=== PATIENT | female | born 1955 | race Caucasian/White ===

== ENCOUNTER 2018-12-02 08:15 | Inpatient (IN) | payer MEDICARE ==
[2018-12-02] VITALS (7 sets, daily range): BP systolic 99–109; BP diastolic 51–61
[~2018-12-02] VITALS: Ht 152.4 cm; Wt 68.9 kg
[~2018-12-02 08:15] MED LIST: ASPI-630 PO; DILT360C PO; ERGO500027 PO; FAMO40TA57 PO; HYDROcodone/APAP 7.5/325MG 1 TAB TABLET PO PRN; IV RINGERS,LACTATED 1000ML 1,000 ML IV SCH; LIDOCAINE 1% PF 2 ML VIAL. ID PRN; METO-239 PO; MORPHINE SULFATE 5 MG, KETOROLAC 30MG VIAL 30 MG, ROPIVacaine 0.5% PF 60 ML, EPINEPHrin... INT ART ONE; MYCO360T PO; ONDANSETRON PF 4 MG/2 ML VIAL. IV PRN; PROCHLORPERAZINE 10 MG/2 ML VIAL. IV PRN; TACR1CAP4 PO; VANCOMYCIN 1GM IVPB FOR OMNI 250 ML IV PRN; fentaNYL PF VIAL 100 MCG/2 ML VIAL IV PRN
[2018-12-02] MEDS ORDERED: VANCOMYCIN 1GM IVPB FOR OMNI. ONE (09:00)
[2018-12-02] MEDS ORDERED: SCOPOLAMINE 1.5MG PATCH. TD ONE ×2 (09:09→09:30)
[2018-12-02] MEDS: IV NORMAL SALINE 1000ML BAG 1,000 ML IV SCH ×3 (09:14→15:19)
[2018-12-02] MEDS ORDERED: MIDAZOLAM HCL/PF 2 MG/2 ML VIAL. ONE (09:36)
[2018-12-02] MEDS ORDERED: FAMOTIDINE 20 MG/2 ML VIAL ONE (09:36)
[2018-12-02] MEDS ORDERED: DEXAMETHASONE SOD PHOS 4 MG/ML VIAL ONE (09:36)
[2018-12-02] MEDS ORDERED: LIDOCAINE 2% PF 5 ML VIAL. ONE (09:36)
[2018-12-02] MEDS ORDERED: fentaNYL PF VIAL 100 MCG/2 ML VIAL ONE (09:36)
[2018-12-02] MEDS ORDERED: PROPOFOL 20 ML IV ONE (09:36)
[2018-12-02] MEDS ORDERED: ONDANSETRON PF 4 MG/2 ML VIAL. ONE (09:36)
[2018-12-02] MEDS ORDERED: ROCURONIUM 50 MG/5 ML VIAL. ONE (09:36)
[2018-12-02] MEDS: DAPTOmycin (GENERIC) IVPB 400 MG in IV NORMAL SALINE 50ML 50 ML IV SCH (10:00)
[2018-12-02] MEDS ORDERED: KETAMINE HCL IN NACL, ISO-OSM 50 MG/5 ML SYRINGE ONE (10:39)
[2018-12-02] MEDS ORDERED: ePHEDrine PF IN SALINE 50 MG/10 ML SYRINGE. IV ONE (10:53)
[2018-12-02] MEDS ORDERED: DESFLURANE > 120 MINUTES IH ONE (12:18)
[2018-12-02] MEDS ORDERED: NEOSTIGMINE METHYLSULFATE 5 MG/5 ML SYRINGE. ONE (12:19)
[2018-12-02] MEDS ORDERED: GLYCOPYRROLATE 1 MG/5 ML VIAL. ONE (12:19)
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
[2018-12-02] MEDS ORDERED: IV DEXTROSE 5% 250 ML BAG. IV PRN (12:45)
[2018-12-02] MEDS ORDERED: PROCHLORPERAZINE 5 MG TABLET. PO PRN (12:45)
[2018-12-02] MEDS ORDERED: ZOLPIDEM 5 MG TABLET. PO PRN (12:45)
[2018-12-02] MEDS ORDERED: MORPHINE SULFATE 2 MG/ML VIAL. IV PRN (12:45)
[2018-12-02] MEDS ORDERED: diphenhydrAMINE 50 MG/ML VIAL IV PRN (12:45)
[2018-12-02] MEDS ORDERED: 0.9 % SODIUM CHLORIDE 10 ML DISP.SYRIN. IV PRN (12:45)
[2018-12-02] MEDS ORDERED: DEXTROSE 50% 25 GM / 50ML DISP.SYRIN. IV PRN (12:45)
[2018-12-02] MEDS: fentaNYL PF VIAL 100 MCG/2 ML VIAL IV PRN ×6 (13:14→19:37)
[2018-12-02] MEDS: MORPHINE SULFATE 2 MG/ML VIAL. IV PRN ×2 (13:28→13:40)
--- NOTE | 2018-12-02 13:35 | RAD ---
Examination: KNEE RIGHT 2V History: Postoperative right knee joint arthroplasty Comparison/Correlation: 09/29/2018 right knee x-ray exam Findings: Frontal and lateral views of the right knee were obtained. Total right knee joint arthroplasty is evident with no loosening. Drainage catheter tubing overlying the knee joint capsule is evident. Soft tissue gas and gas within the knee joint capsule consistent with postoperative status is identified. No retained foreign body suspected. No fracture. Impression: Total right knee joint arthroplasty. Electronically signed by: Dayron Shaw MD (12/02/2018 1:32 PM) [facility]
[2018-12-02] MEDS ORDERED: HYDROmorphone 2 MG/ML VIAL ONE (13:54)
[2018-12-02] MEDS: HYDROmorphone 2 MG/ML VIAL IV PRN ×2 (13:59→14:10)
--- NOTE | 2018-12-02 15:33 | NUR ---
Anthony came to the floor with pain rating 8-9; medicated with fentanyl iv. she has good bilateral pulses,sensation and motion. o2 placed at 4l/nc; sating 94%. medications sent to pharmacy for verification; she is to take her own medications
--- NOTE | 2018-12-02 16:15 | PDOC ---
Infectious Disease Note Vital Sign Vital Signs Vital Signs Date Time Temp Pulse Resp B/P (MAP) Pulse Ox O2 Delivery O2 Flow Rate FiO2 12/02/18 15:41 Nasal Cannula 4.0 12/02/18 15:15 97.5 50 14 99/53 (68) 93 97.5 Objective Assessment Positive MRSA nares from 11/10/2018 s/p Bactroban > 5 days and daily chlorhexidine body washes > 5 days Immunosuppression secondary kidney transplant 2003 Right knee OA s/p TKA, 12/02 performed CKD. last Cr 1.2 Crohn disease Plan Plan of Care Dapto x 2 doses for R TKA surgical prophylaxis- avoiding Vanc with CKD and renal transplant f/u am labs Supportive care Thank you Notes from 11/03 and labs from 11/10 reviewed D/w nursing this am Attending Co-Sign Attending Co-Sign The patient was seen and interviewed as well as examined at the bedside. The chart was reviewed. The case was discussed. Agree with the plan of care. HENRY OSBORNE APRN Dec 02, 2018 16:15 SARMAD NELSON MD Dec 02, 2018 16:18
[2018-12-02] MEDS: FERROUS SULFATE 325 MG TABLET. PO SCH (16:58)
[2018-12-02] MEDS: oxyCODONE IR 5 MG TABLET PO PRN ×2 (16:58→23:17)
[2018-12-02] MEDS: ONDANSETRON ODT 4 MG TAB.RAPDIS. PO SCH (16:58)
[2018-12-02] MEDS: KETOROLAC 30MG VIAL 30 MG, BUPIVACAINE MPF 0.25% 20 ML, EPINEPHrine 0.5 MG in TOTAL VOL... INT ART SCH (16:59)
[2018-12-02] MEDS ORDERED: NIFEdipine 10 MG CAPSULE PO PRN (17:15)
[2018-12-02] MEDS: ONDANSETRON PF 4 MG/2 ML VIAL. IV SCH (17:39)
[2018-12-02] MEDS: MYCOPHENOLIC ACID 360 MG PO SCH (20:45)
[2018-12-02] MEDS: TACROLIMUS 1 MG PO SCH (20:45)
[2018-12-02] MEDS: FAMOTIDINE 40 MG PO SCH (20:45)
[2018-12-02] MEDS: APIXABAN 2.5 MG TABLET. PO SCH (20:46)
--- NOTE | 2018-12-02 23:00 | NUR ---
Unable to void. Bladder scan shows 525cc. Refused straight cath, "I'll try again." Encouraged po fluids, IVF patent.
[2018-12-03] MEDS: IV NORMAL SALINE 1000ML BAG 1,000 ML IV SCH ×3 (01:15→19:35)
[2018-12-03 02:35] VITALS: BP 109/61
[2018-12-03] MEDS: GABAPENTIN 100 MG CAPSULE. PO SCH ×2 (05:55→17:06)
[2018-12-03] MEDS: ONDANSETRON ODT 4 MG TAB.RAPDIS. PO SCH ×3 (05:56→12:00)
[2018-12-03] MEDS: traMADol 50 MG TABLET PO SCH ×3 (05:56→17:04)
[2018-12-03] MEDS: KETOROLAC 30MG VIAL 30 MG, BUPIVACAINE MPF 0.25% 20 ML, EPINEPHrine 0.5 MG in TOTAL VOL... INT ART SCH (05:58)
[2018-12-03] MEDS ORDERED: MAGNESIUM HYDROXIDE 2,400 MG/30 ML ORAL.SUSP. PO PRN (06:00)
[2018-12-03] MEDS: ONDANSETRON PF 4 MG/2 ML VIAL. IV SCH ×3 (06:00→12:00)
[2018-12-03 06:12] VITALS: BP 136/72
--- NOTE | 2018-12-03 06:25 | NUR ---
Voided 250cc concentrated urine. IAC infusing w/o difficulty.
[2018-12-03 08:30] LABS: HEMATOCRIT 34.3 % (36.0-47.0); HEMOGLOBIN 11.2 g/dL (12.0-15.5); RED BLOOD COUNT 3.92 x10^6/uL (3.50-5.40); RED CELL DISTRIBUTION WIDTH 13.4 % (11.5-14.5); WHITE BLOOD COUNT 18.4 x10^3/uL (4.0-11.0)
[2018-12-03] MEDS: FERROUS SULFATE 325 MG TABLET. PO SCH ×2 (08:32→17:04)
[2018-12-03] MEDS: APIXABAN 2.5 MG TABLET. PO SCH ×2 (08:32→20:29)
[2018-12-03] MEDS: MULTIVITAMIN with MINERAL TABLET. PO SCH (08:33)
[2018-12-03] MEDS: ACETAMINOPHEN 500 MG TABLET PO SCH ×3 (08:33→20:30)
[2018-12-03] MEDS: SENNOSIDES/DOCUSATE 8.6/50MG TABLET. PO SCH (08:33)
[2018-12-03] MEDS: TACROLIMUS 1 MG PO SCH ×2 (08:39→20:29)
[2018-12-03] MEDS: ASPIRIN 81 MG PO SCH (08:45)
[2018-12-03] MEDS: MYCOPHENOLIC ACID 360 MG PO SCH ×2 (08:45→20:29)
[2018-12-03] MEDS: oxyCODONE IR 5 MG TABLET PO PRN ×3 (08:49→20:33)
[2018-12-03 09:00] VITALS: BP 115/64
[2018-12-03] MEDS: METOPROLOL 50 MG PO SCH (09:00)
[2018-12-03] MEDS: DILTIAZEM 360 MG PO SCH (09:00)
[2018-12-03] MEDS ORDERED: ASPIRIN CHEWABLE 81 MG TABLET. PO SCH (09:00)
[2018-12-03] MEDS: DAPTOmycin (GENERIC) IVPB 400 MG in IV NORMAL SALINE 50ML 50 ML IV SCH (09:47)
--- NOTE | 2018-12-03 10:17 | PDOC4 ---
Operative Note Operative Note Date of surgery: 12/03/2018 Preoperative diagnosis: Degenerative joint disease right knee Postoperative diagnosis: Same Operative procedure: Right total knee arthroplasty Surgeon: Judith Assist: Colin Salcido Anesthesia: Gen. Estimated blood loss: 75 mL Complications: None Specimens: Cartilage surfaces to pathology Drains: Intra-articular catheter and Hemovac Operative indications: Please see my detailed history and physical preoperativel y for detailed operative indications and note that we discussed previously nonoperative options which she had exhausted as she is been recently unresponsive to corticosteroid or Visco supplementation injections and has had significant pain and limitations of her activities of daily living despite activity modification. We had gone over risks benefits postoperative course of total knee arthroplasty including the possibility of infection nerve or blood vessel damage continued pain premature wear or loosening medical or other anesthetic complications among others and specifically her increased risks of immunosuppressive medications in terms of infection and other medical issues all her questions were answered she wishes to proceed with surgical evaluation and t reatment having given informed consent. Operative text: Patient was identified procedure verified patient placed in the supine position on the operating table. After adequate amounts of general endotracheal anesthesia were administered the right lower extremity was prepped and draped in standard sterile fashion with a thigh tourniquet. After timeout was performed patient procedure identified and verified, the right lower extremity was exsanguinated by Esmarch bandage tourniquet inflated to 350 mmHg and a midline incision was made medial parapatellar approach carried out patella everted fat pad excised distal femur was drilled and an extra 2 mm distal cut was made based on appearance. A size 4 cutting guide was indicated by the alignment and measuring device which was drilled in 3� of external rotation with reference to the posterior condyles, distal anterior posterior and chamfer cuts were then made with the femoral jig tibial cut was made and the posterior cruciate ligament initially spared. Additional lateral cut was made to achieve ligament balance and a size 3 tibial baseplate trial was found to have excellent fit and was noted to have excessive laxity of the posterior cruciate ligament when trial fit with the size 4 cruciate retaining femur. Therefore I converted to a cruciate stabilized implant by making box reaming and trial fitting showed excellent ligament balance full range of motion with the cruciate stabilized trial. Patella was then resurfaced with a resurfacing patella 29 mm which was medialized lateral bone was chamfered to avoid any possible impingement. Tibia was drilled and broached trial components were removed thorough irrigation carried out normal saline solution bleeding points controlled by electrocautery and the following components were cemented with polymethyl methacrylate cement a size 3 journey nonporous tibial baseplate a size 4 right bicruciate stabilized j ourney to Oxinium femoral component and a 29 mm resurfacing round patellar component. Knee was held in extension with 11 mm spacer excess cement was removed after cement was dry and the stability and balance again confirmed an 11 mm journey 2 articular insert was snapped into place thorough irrigation again carried out normal saline solution pain catheter and Hemovac drain were placed retinaculum was closed with #2 Ethibond interrupted suture and reinforced with #1 PDS strata fix suture subcutaneous closure with buried Vicryl subcuticular 3- 0 Monocryl strata fix. A piotr dressing with Acticoat was placed. Toes were noted be warm and pink following deflation of the tourniquet which occurred following component cementing patient was returned recovery room in stable condition having tolerated procedure well BRITTNEY LEO MD Dec 03, 2018 10:17
--- NOTE | 2018-12-03 10:20 | PDOC ---
PROGRESS NOTES Subjective Subjective Problems overnight: Overall doing well pain is controlled she has no other complaints aside from expected knee soreness and some swelling in the lower part of her leg around the ankle Objective Vital Signs Vital Signs Date Time Temp Pulse Resp B/P (MAP) Pulse Ox O2 Delivery O2 Flow Rate FiO2 12/03/18 08:49 Room Air 12/03/18 06:58 20 12/03/18 06:12 98.1 67 136/72 (93) 94 98.1 12/02/18 19:37 4.0 Physical Exam Dressings clean dry intact her Hemovac drain and pain catheter are likewise intact she does have some swelling around the ankle no calf tenderness distal neurovascular status intact and she has reasonable early range of motion Labs Laboratory Tests Test 12/03/18 07:55 White Blood Count 18.4 x10^3/uL (4.0-11.0) Red Blood Count 3.92 x10^6/uL (3.50-5.40) Hemoglobin 11.2 g/dL (12.0-15.5) Hematocrit 34.3 % (36.0-47.0) Mean Corpuscular Volume 88 fL (79-100) Mean Corpuscular Hemoglobin 29 pg (25-35) Mean Corpuscular Hemoglobin Concent 33 g/dL (31-37) Red Cell Distribution Width 13.4 % (11.5-14.5) Platelet Count 213 x10^3/uL (140-400) Laboratory Tests Test 12/03/18 07:55 White Blood Count 18.4 x10^3/uL (4.0-11.0) Red Blood Count 3.92 x10^6/uL (3.50-5.40) Hemoglobin 11.2 g/dL (12.0-15.5) Hematocrit 34.3 % (36.0-47.0) Mean Corpuscular Volume 88 fL (79-100) Mean Corpuscular Hemoglobin 29 pg (25-35) Mean Corpuscular Hemoglobin Concent 33 g/dL (31-37) Red Cell Distribution Width 13.4 % (11.5-14.5) Platelet Count 213 x10^3/uL (140-400) Imaging Postoperative x-rays show excellent alignment of a right total knee arthroplasty Assessment Assessment POD# [1], S/P [right total knee arthroplasty] Plan Plan of Care Overall she is doing well currently, home medicines are reconciled and available Appreciate infectious disease input due to her kidney transplant and initial reoperative MRSA results on swab, continue daptomycin prophylactically �2 more doses Mobilize with physical therapy standard total knee protocol BRITTNEY LEO MD Dec 03, 2018 10:20
[2018-12-03 11:30] VITALS: BP 117/62
[2018-12-03] MEDS ORDERED: ONDANSETRON ODT 4 MG TAB.RAPDIS. PO PRN (12:00)
[2018-12-03] MEDS ORDERED: ONDANSETRON PF 4 MG/2 ML VIAL. IV PRN (12:00)
[2018-12-03] MEDS: CALCIUM CARBONATE 500 MG TAB.CHEW PO PRN ×2 (12:37→20:33)
--- NOTE | 2018-12-03 15:31 | PDOC ---
Infectious Disease Note Subjective Subjective Doing alright Had PT twice today Transferred to the chair Pain controlled No BM Denies F/C/N/V/SOA/aches No generalized aches Vital Sign Vital Signs Vital Signs Date Time Temp Pulse Resp B/P (MAP) Pulse Ox O2 Delivery O2 Flow Rate FiO2 12/03/18 13:34 Room Air 12/03/18 11:30 62 117/62 (80) 12/03/18 06:58 20 12/03/18 06:12 98.1 94 98.1 12/02/18 19:37 4.0 Physical Exam PHYSICAL EXAM GENERAL: Sitting in the chair, alert, relaxed HENT: Oropharynx pink, moist LUNGS: Clear HEART: S1 and S2 ABD: Soft and nontender EXT: Trace edema RLE, no cyanosis. DP palpable. Right knee post-op dressing and w/ piotr and Hemovac drain in place SKIN: Warm to touch. No sighn of rash DIAMOND SORTER: Alert and oriented PIV ok Labs Lab Laboratory Tests Test 12/03/18 07:55 White Blood Count 18.4 x10^3/uL (4.0-11.0) Red Blood Count 3.92 x10^6/uL (3.50-5.40) Hemoglobin 11.2 g/dL (12.0-15.5) Hematocrit 34.3 % (36.0-47.0) Mean Corpuscular Volume 88 fL (79-100) Mean Corpuscular Hemoglobin 29 pg (25-35) Mean Corpuscular Hemoglobin Concent 33 g/dL (31-37) Red Cell Distribution Width 13.4 % (11.5-14.5) Platelet Count 213 x10^3/uL (140-400) Objective Assessment Positive MRSA nares from 11/10/2018 s/p Bactroban and daily chlorhexidine body washes both > 5 days Immunosuppression secondary kidney transplant 2003 Right knee OA s/p TKA, 12/[address] Wong - clinically looks very well CKD. last Cr 1.2 Crohn disease Leukocytosis, likely reactive steroids and surgery Plan Plan of Care Completed 2 doses of dapto for right TKA surgical prophylaxis. 2 more doses were ordered per ortho Vanc was avoided with CKD and renal transplant Dexamethasone, 12/02 Supportive care D/w nursing BMP in am Attending Co-Sign Attending Co-Sign The patient was seen and interviewed as well as examined at the bedside. The chart was reviewed. The case was discussed. Agree with the plan of care. HENRY OSBORNE APRN Dec 03, 2018 15:31 SARMAD NELSON MD Dec 03, 2018 16:27
[2018-12-03] MEDS ORDERED: BISACODYL 10 MG SUPP.RECT. PR PRN (16:00)
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
[2018-12-03 17:54] VITALS: BP 120/73
[2018-12-03] MEDS: FAMOTIDINE 40 MG PO SCH (20:28)
[2018-12-04] MEDS: traMADol 50 MG TABLET PO SCH ×4 (00:02→17:49)
[2018-12-04] MEDS: oxyCODONE IR 5 MG TABLET PO PRN ×5 (00:04→16:51)
[2018-12-04] MEDS: ACETAMINOPHEN 500 MG TABLET PO SCH ×4 (03:00→21:34)
[2018-12-04 05:30] VITALS: BP 132/73
[2018-12-04] MEDS: GABAPENTIN 100 MG CAPSULE. PO SCH ×2 (06:21→17:49)
[2018-12-04 06:38] LABS: HEMATOCRIT 29.5 % (36.0-47.0); HEMOGLOBIN 9.9 g/dL (12.0-15.5)
[2018-12-04 06:54] LABS: CALCIUM 8.9 mg/dL (8.5-10.1); CREATININE 1.3 mg/dL (0.6-1.0); GFR 41.6; POTASSIUM 4.8 mmol/L (3.5-5.1)
[2018-12-04] MEDS: ASPIRIN 81 MG PO SCH (07:52)
[2018-12-04] MEDS: FERROUS SULFATE 325 MG TABLET. PO SCH ×2 (07:52→16:52)
[2018-12-04] MEDS: fentaNYL PF VIAL 100 MCG/2 ML VIAL IV PRN (07:56)
[2018-12-04 09:00] VITALS: BP 120/57
[2018-12-04] MEDS: DAPTOmycin (GENERIC) IVPB 400 MG in IV NORMAL SALINE 50ML 50 ML IV SCH (09:25)
[2018-12-04] MEDS: METOPROLOL 50 MG PO SCH (09:26)
[2018-12-04] MEDS: MYCOPHENOLIC ACID 360 MG PO SCH ×2 (09:27→21:34)
[2018-12-04] MEDS: FAMOTIDINE 40 MG PO SCH (09:28)
[2018-12-04] MEDS: DILTIAZEM 360 MG PO SCH (09:28)
[2018-12-04] MEDS: TACROLIMUS 1 MG PO SCH ×2 (09:29→21:34)
[2018-12-04] MEDS: MULTIVITAMIN with MINERAL TABLET. PO SCH (09:29)
[2018-12-04] MEDS: APIXABAN 2.5 MG TABLET. PO SCH ×2 (09:30→21:34)
[2018-12-04] MEDS: SENNOSIDES/DOCUSATE 8.6/50MG TABLET. PO SCH (09:30)
--- NOTE | 2018-12-04 10:30 | NUR ---
resting quietly in bed. states that she is having pain in her thigh area and is rating it around a "7" medicated with fentanyl iv. she has good sensation/motion frankie lower extremities
[2018-12-04] MEDS ORDERED: POLYETHYLENE GLYCOL 3350 17 GM PACKET. PO PRN (12:00)
--- NOTE | 2018-12-04 13:02 | PDOC ---
PROGRESS NOTES Subjective Subjective Problems overnight: A bit more sore today as expected, she says she probably isn't keeping up as well as she showed on pain medications but overall getting up and around reasonably well Objective Vital Signs Vital Signs Date Time Temp Pulse Resp B/P (MAP) Pulse Ox O2 Delivery O2 Flow Rate FiO2 12/04/18 12:57 93 Room Air 4.0 12/04/18 10:14 20 12/04/18 05:30 97.6 73 132/73 (92) 97.6 Physical Exam Emma dressing clean dry intact good early range of motion distal neurovascular status intact good tracking and stability Labs Laboratory Tests Test 12/03/18 07:55 12/04/18 06:10 White Blood Count 18.4 x10^3/uL (4.0-11.0) Red Blood Count 3.92 x10^6/uL (3.50-5.40) Hemoglobin 11.2 g/dL (12.0-15.5) 9.9 g/dL (12.0-15.5) Hematocrit 34.3 % (36.0-47.0) 29.5 % (36.0-47.0) Mean Corpuscular Volume 88 fL (79-100) Mean Corpuscular Hemoglobin 29 pg (25-35) Mean Corpuscular Hemoglobin Concent 33 g/dL (31-37) 34 g/dL (31-37) Red Cell Distribution Width 13.4 % (11.5-14.5) Platelet Count 213 x10^3/uL (140-400) Sodium Level 141 mmol/L (136-145) Potassium Level 4.8 mmol/L (3.5-5.1) Chloride Level 107 mmol/L (98-107) Carbon Dioxide Level 27 mmol/L (21-32) Anion Gap 7 (6-14) Blood Urea Nitrogen 33 mg/dL (7-20) Creatinine 1.3 mg/dL (0.6-1.0) Estimated GFR (Cockcroft-Gault) 41.6 Glucose Level 88 mg/dL (70-99) Calcium Level 8.9 mg/dL (8.5-10.1) Laboratory Tests Test 12/04/18 06:10 Hemoglobin 9.9 g/dL (12.0-15.5) Hematocrit 29.5 % (36.0-47.0) Mean Corpuscular Hemoglobin Concent 34 g/dL (31-37) Sodium Level 141 mmol/L (136-145) Potassium Level 4.8 mmol/L (3.5-5.1) Chloride Level 107 mmol/L (98-107) Carbon Dioxide Level 27 mmol/L (21-32) Anion Gap 7 (6-14) Blood Urea Nitrogen 33 mg/dL (7-20) Creatinine 1.3 mg/dL (0.6-1.0) Estimated GFR (Cockcroft-Gault) 41.6 Glucose Level 88 mg/dL (70-99) Calcium Level 8.9 mg/dL (8.5-10.1) Assessment Assessment POD# [2], S/P [right total knee arthroplasty] Plan Plan of Care Continue Eliquis for DVT prophylaxis, estimated duration 4 weeks postop Appreciate infectious disease follow Continue physical therapy weightbearing as tolerated standard total knee protocol Anticipate likely outpatient physical therapy on discharge BRITTNEY LEO MD Dec 04, 2018 13:02
[2018-12-04] MEDS ORDERED: ANTI-COAG MONITOR BY PHARMACY. MC PRN (14:45)
--- NOTE | 2018-12-04 15:46 | PDOC ---
Infectious Disease Note Subjective Subjective Drain removed earlier Physical therapy going well Pain controlled, less swelling No F/C/N/V ROS ROS per HPI Vital Sign Vital Signs Vital Signs Date Time Temp Pulse Resp B/P (MAP) Pulse Ox O2 Delivery O2 Flow Rate FiO2 12/04/18 12:57 93 Room Air 4.0 12/04/18 10:14 20 12/04/18 05:30 97.6 73 132/73 (92) 97.6 Physical Exam PHYSICAL EXAM GENERAL: Sitting in the chair, alert, relaxed, tired appearance HENT: Oropharynx pink, moist LUNGS: Clear HEART: S1 and S2 ABD: Soft and nontender EXT: Trace edema RLE, no cyanosis. DP palpable. Right knee piotr in place. DP palpable SKIN: Warm to touch. No sign of rash MEDICAL ASSISTING PROGRAM DIRECTOR: Alert and oriented x 3 PIV ok Labs Lab Laboratory Tests Test 12/04/18 06:10 Hemoglobin 9.9 g/dL (12.0-15.5) Hematocrit 29.5 % (36.0-47.0) Mean Corpuscular Hemoglobin Concent 34 g/dL (31-37) Sodium Level 141 mmol/L (136-145) Potassium Level 4.8 mmol/L (3.5-5.1) Chloride Level 107 mmol/L (98-107) Carbon Dioxide Level 27 mmol/L (21-32) Anion Gap 7 (6-14) Blood Urea Nitrogen 33 mg/dL (7-20) Creatinine 1.3 mg/dL (0.6-1.0) Estimated GFR (Cockcroft-Gault) 41.6 Glucose Level 88 mg/dL (70-99) Calcium Level 8.9 mg/dL (8.5-10.1) Objective Assessment Positive MRSA nares from 11/10/2018 s/p Bactroban and daily chlorhexidine body washes both > 5 days Immunosuppression secondary kidney transplant 2003 Right knee OA s/p TKA, 12/[address] Wong - clinically looks very well CKD. last Cr 1.2 Crohn disease Leukocytosis, likely reactive steroids and surgery Plan Plan of Care Completed 2 doses of dapto for right TKA surgical prophylaxis. 2 more doses were ordered per ortho. Last dose on 12/05 Vanc was avoided with CKD and renal transplant Cr. 1.3 Anticipating discharge home soon Will dose peridex for tongue bacterial overgrowth - ID to sign off Attending Co-Sign Attending Co-Sign The patient was seen and interviewed as well as examined at the bedside. The chart was reviewed. The case was discussed. Agree with the plan of care. HENRY OSBORNE APRN Dec 04, 2018 15:46 SARMAD NELSON MD Dec 04, 2018 16:29
[2018-12-04 17:47] VITALS: BP 85/53
[2018-12-04] MEDS: CHLORHEXIDINE 0.12% 15 ML MOUTHWASH. SWSP SCH (21:33)
[2018-12-05] MEDS: traMADol 50 MG TABLET PO SCH ×3 (00:32→12:07)
[2018-12-05] MEDS: ACETAMINOPHEN 500 MG TABLET PO SCH ×3 (03:00→16:20)
[2018-12-05] MEDS: GABAPENTIN 100 MG CAPSULE. PO SCH (06:04)
[2018-12-05 06:26] VITALS: BP 118/63
[2018-12-05 08:16] LABS: HEMATOCRIT 28.4 % (36.0-47.0); HEMOGLOBIN 9.6 g/dL (12.0-15.5)
[2018-12-05 08:31] LABS: ALBUMIN 2.4 g/dL (3.4-5.0); ALBUMIN/GLOBULIN RATIO 0.8 (1.0-1.7); CREATININE 1.1 mg/dL (0.6-1.0); GFR 50.5; POTASSIUM 4.4 mmol/L (3.5-5.1); TOTAL PROTEIN 5.6 g/dL (6.4-8.2)
[2018-12-05] MEDS: MULTIVITAMIN with MINERAL TABLET. PO SCH (08:32)
[2018-12-05] MEDS: FERROUS SULFATE 325 MG TABLET. PO SCH (08:33)
[2018-12-05] MEDS: APIXABAN 2.5 MG TABLET. PO SCH (08:33)
[2018-12-05] MEDS: ASPIRIN 81 MG PO SCH (08:34)
[2018-12-05] MEDS: TACROLIMUS 1 MG PO SCH (08:36)
[2018-12-05] MEDS: MYCOPHENOLIC ACID 360 MG PO SCH (08:44)
[2018-12-05] MEDS: SENNOSIDES/DOCUSATE 8.6/50MG TABLET. PO SCH (08:45)
[2018-12-05] MEDS: DAPTOmycin (GENERIC) IVPB 400 MG in IV NORMAL SALINE 50ML 50 ML IV SCH (08:47)
[2018-12-05] MEDS: METOPROLOL 50 MG PO SCH (09:00)
[2018-12-05] MEDS: CHLORHEXIDINE 0.12% 15 ML MOUTHWASH. SWSP SCH (09:00)
[2018-12-05] MEDS: DILTIAZEM 360 MG PO SCH (09:00)
[2018-12-05] MEDS: oxyCODONE IR 5 MG TABLET PO PRN ×2 (09:39→13:11)
--- NOTE | 2018-12-05 12:20 | NUR ---
Ambulating in room with walker independently. No c/o at this time cont. monitor.
[2018-12-05 13:46] VITALS: BP 139/70
[2018-12-05] MEDS ORDERED: OXYC5TAB2 PO (14:04)
[2018-12-05] MEDS ORDERED: TRAM50TA PO (14:04)
[2018-12-05] MEDS ORDERED: APIX2.5T PO (14:04)
--- NOTE | 2018-12-05 14:06 | DISCH ---
DISCHARGE INSTRUCTIONS Condition on Discharge Condition on Discharge: Stable Activity After Discharge Activity Instructions for Disc: Activity as tolerated, Progressive ambulation Bathing Instructions: Shower-keep dressing dry, No Tub Bath until see Exercise Instruction after Dis: Exercise per therapy, Progress as tolerated Driving Instructions after Dis: Do not drive (based on progress with physical therapy, usual return of adequate reaction time is 4 weeks) Weight Bearing Status after Di: Full weight bearing Diet after Discharge Diet after Discharge: Regular Diet Texture: Regular Liquid Texture: Thin Liquid Wound Incision Care Wound/Incision Care: Ice to area for comfort, Keep wound elevated, Do not change dressing (maintain piotr dressing, report any drainage saturating the bandage to its edges or leakage redness or other concerns) Other wound/incision instructi: may shower if dressing covered with saran wrap Community/Resources/Services Services at Discharge: Outpatient Therapy Contacting the after DC Call your doctor for: Concerns you may have Follow-Up Follow Up With: Dr. Wong in 10-14 days [phone] Treatment/Equipment after DC Adaptive Equipment Issued: BRITTNEY Sierra MD Dec 05, 2018 14:06
--- NOTE | 2018-12-05 14:07 | PATHOLOGY ---
[facility] Accession Number: [id number] . 01 Material submitted: . knee - RIGHT KNEE BONE. Modifiers: right . 01 Clinical history: . Right knee osteoarthritis . 02 Diagnosis: Segments of bone and soft tissue, right knee arthroplasty: - Advanced degenerative arthritis. - Focal mild nonspecific chronic synovitis. (JPM:[facility] 12/05/2018) QTP/12/05/2018 . 02 Electronically signed: . William Cho MD, Pathologist NPI- [id number] . 01 Gross description: . Received in formalin labeled "Leithauser, Gelsom[place], right knee bone", are multiple segments of bone including apparent tibia plateau, patella and soft tissue measuring 10.0 x 8.0 x 1.5 cm in aggregate. No discrete meniscus is identified. Several bone segments are partially covered by pitted sosa and granular articular cartilage with areas of eburnation. Osteophyte are present. Representatively submitted in A1 after decalcification. (SWS; 12/03/2018) SHS/SHS . 02 Pathologist provided ICD-10: M17.11, M65.9 . 02 CPT . 014334, [id number] Specimen Comment: A courtesy copy of this report has been sent to Specimen Comment: [phone]. Specimen Comment: Report sent to Performed at: 01 [facility] [address], [place] [id number] MD Mode Butler MD Phone: [phone] Performed at: 02 [facility] [address], [place] [id number] MD William Cho MD Phone: [phone]
--- NOTE | 2018-12-05 16:20 | NUR ---
Discharge instructions given with prescriptions. Answered questions and concerns. Verbalized understanding. Waiting for ride home.
--- NOTE | 2018-12-05 17:10 | NUR ---
Discharge home accompanied by brother.
[2019-01-01] MEDS ORDERED: ERGOCALCIFEROL (VITAMIN D2) 50,000 UNIT CAPSULE. PO SCH (09:00)
== END 2018-12-05 17:10 | disposition home or self-care (01) | DRG 470 ==
LOC: EDBD → OPSVCIP 08:15 → MERGE 10:35 → EDBD 10:35 → 4 SOUTHEST 14:45
PROVIDERS: ADMIT Orthopaedic Surgery; ATTEND Orthopaedic Surgery
PROC: 0SRC069 Replacement of Right Knee Joint with Oxidized Zirconium on Polyethylene Synthetic Substitute, Cemented, Open Approach (ICD-10-PCS; principal; 2018-12-03)
DX: M17.31 Unilateral post-traumatic osteoarthritis, right knee (principal); K50.90 Crohn's disease, unspecified, without complications; Z94.0 Kidney transplant status; N18.9 Chronic kidney disease, unspecified; I12.9 Hypertensive chronic kidney disease with stage 1 through stage 4 chronic kidney disease, or unspecified chronic kidney disease; K21.9 Gastro-esophageal reflux disease without esophagitis; G89.29 Other chronic pain; E78.5 Hyperlipidemia, unspecified; M10.9 Gout, unspecified; D72.828 Other elevated white blood cell count; T38.0X5A Adverse effect of glucocorticoids and synthetic analogues, initial encounter; E66.9 Obesity, unspecified; Z68.29 Body mass index [BMI] 29.0-29.9, adult; Z86.73 Personal history of transient ischemic attack (TIA), and cerebral infarction without residual deficits; Z98.84 Bariatric surgery status; Z90.49 Acquired absence of other specified parts of digestive tract; Z80.0 Family history of malignant neoplasm of digestive organs; Z82.49 Family history of ischemic heart disease and other diseases of the circulatory system; Y92.89 Other specified places as the place of occurrence of the external cause
CPT/HCPCS: 36415; 73560; 80048; 80053; 85014; 85018; 85027; 86705; 86709; 86803; 86850; 86900; 86901; 87340; 88304; 88311; A7015; C1713; J0171; J0878; J1100; J1170; J1885; J2001; J2250; J2270; J2405; J2704; J2710; J2795; J3010; J3370; J3490; J7030; J7120; Q0162; 97116; 97150; 97530; 97535; C1769; G0378

== ENCOUNTER → 2018-12-10 | Outpatient (CLI) | payer MEDICARE ==
[2018-12-05 13:46] VITALS: BP 139/70
[~2018-12-10] MED LIST changes: +APIX2.5T PO; -HYDROcodone/APAP 7.5/325MG 1 TAB TABLET PO PRN; -IV RINGERS,LACTATED 1000ML 1,000 ML IV SCH; -LIDOCAINE 1% PF 2 ML VIAL. ID PRN; -MORPHINE SULFATE 5 MG, KETOROLAC 30MG VIAL 30 MG, ROPIVacaine 0.5% PF 60 ML, EPINEPHrin... INT ART ONE; -ONDANSETRON PF 4 MG/2 ML VIAL. IV PRN; +OXYC5TAB2 PO; -PROCHLORPERAZINE 10 MG/2 ML VIAL. IV PRN; +TRAM50TA PO; -VANCOMYCIN 1GM IVPB FOR OMNI 250 ML IV PRN; -fentaNYL PF VIAL 100 MCG/2 ML VIAL IV PRN
[2018-12-10 13:30] LABS: BASO % 0 % (0-3); EOS % 1 % (0-3); HEMATOCRIT 28.4 % (36.0-47.0); HEMOGLOBIN 9.5 g/dL (12.0-15.5); LYMPH # 1.2 x10^3/uL (1.0-4.8); LYMPH % 12 % (24-48); MEAN CORPUSCULAR HEMOGLOBIN 29 pg (25-35); MEAN CORPUSCULAR HGB CONC 34 g/dL (31-37); MEAN CORPUSCULAR VOLUME 87 fL (79-100); MONO # 0.9 x10^3/uL (0.0-1.1); MONO % 9 % (0-9); NEUT # 7.3 x10^3/uL (1.8-7.7); NEUT % 78 % (31-73); PLATELET COUNT 373 x10^3/uL (140-400); RED BLOOD COUNT 3.27 x10^6/uL (3.50-5.40); RED CELL DISTRIBUTION WIDTH 13.6 % (11.5-14.5); WHITE BLOOD COUNT 9.4 x10^3/uL (4.0-11.0)
[2018-12-10 13:45] LABS: ALBUMIN/GLOBULIN RATIO 0.7 (1.0-1.7); CALCIUM 10.1 mg/dL (8.5-10.1); CREATININE 1.3 mg/dL (0.6-1.0); GFR 41.6; POTASSIUM 4.1 mmol/L (3.5-5.1); TOTAL BILIRUBIN 0.6 mg/dL (0.2-1.0); TOTAL PROTEIN 7.6 g/dL (6.4-8.2)
[2018-12-11 03:13] LABS: HEMOGLOBIN A1C 5.6 % (4.8-5.6)
== END | disposition home or self-care (01) ==
LOC: LAB 13:05
PROVIDERS: ATTEND Internal Medicine Pulmonary Disease
DX: N18.6 End stage renal disease (principal); R06.00 Dyspnea, unspecified; E08.9 Diabetes mellitus due to underlying condition without complications; D51.9 Vitamin B12 deficiency anemia, unspecified
CPT/HCPCS: 36415; 80053; 82306; 82607; 83036; 83735; 85025